=== PATIENT | female | born 1975 | race Caucasian/White ===

== ENCOUNTER → 2018-05-09 | Outpatient (CLI) | payer OTHER ==
[~2018-05-09] MED LIST: DICL25TA PO; HYDR25TA6 PO; IBUP-1223 PO; OXYC-306 PO; PERCOCET PO; POTASSIUM PO
[2018-05-09 12:28] LABS: ANION GAP 6 mmol/L (5-15); CALCIUM 8.8 mg/dL (8.5-10.1); CHLORIDE 103 mmol/L (98-107)
[2018-05-09 12:34] LABS: ALANINE AMINOTRANSFERASE 24 U/L (12-78); ALKALINE PHOSPHATASE 47 U/L (45-117); BILIRUBIN,TOTAL 0.7 mg/dL (0.2-1.0); CREATININE 0.82 mg/dL (0.55-1.02); TOTAL PROTEIN 7.5 g/dL (6.4-8.2)
== END | disposition home or self-care (01) ==
LOC: STAR 10:58
PROVIDERS: ATTEND Otolaryngology
DX: Z01.818 Encounter for other preprocedural examination (principal); H72.91 Unspecified perforation of tympanic membrane, right ear
CPT/HCPCS: 36415; 80053

== ENCOUNTER 2018-05-14 06:06 | Day surgery (SDC) | payer OTHER ==
[~2018-05-14] VITALS: Ht 165.1 cm; Wt 71.5 kg
[2018-05-14] MEDS ORDERED: LACTATED RINGERS 1,000 ML IV SCH (07:02)
[2018-05-14 07:03] VITALS: BP 110/78
[2018-05-14] MEDS ORDERED: OXYC-302 PO (07:03)
[2018-05-14] MEDS ORDERED: FENTANYL PF 250 MCG/5ML ONE (09:58)
[2018-05-14] MEDS ORDERED: MIDAZOLAM 1 MG/ML, 2ML ONE (09:58)
[2018-05-14] MEDS ORDERED: LIDOCAINE 1%-EPI 1:100K, 30ML ONE (10:13)
[2018-05-14] MEDS ORDERED: CIPROFLOXACIN DEXAMETHASONE EAR SUSP 7.5ML ONE (10:13)
[2018-05-14] MEDS ORDERED: EPINEPHRINE TOPICAL SOLN 1 MG/ML, 30ML ONE (10:13)
[2018-05-14] MEDS ORDERED: SUCCINYLCHOLINE 20 MG/ML, 10ML ONE (10:31)
[2018-05-14] MEDS ORDERED: PROPOFOL 10 MG/ML, 20ML ONE (10:31)
[2018-05-14] MEDS ORDERED: PROMETHAZINE 25 MG/ML, 1ML IV PRN (11:30)
[2018-05-14] MEDS ORDERED: LABETALOL 5MG/ML, 20ML IV PRN (11:30)
[2018-05-14] MEDS ORDERED: ACETAMINOPHEN 325 MG TABLET PO PRN (11:30)
[2018-05-14] MEDS ORDERED: OXYcodone 5 MG/5 ML ORAL.SOL UDC PO PRN (11:30)
[2018-05-14] MEDS ORDERED: hydrALAzine 20 MG/ML, 1ML IV PRN (11:30)
[2018-05-14] MEDS ORDERED: FENTANYL PF 100 MCG/2ML IV PRN (11:30)
[2018-05-14] MEDS ORDERED: ALBUTEROL SULFATE 2.5 MG/3 ML NPPB PRN (11:30)
[2018-05-14] MEDS ORDERED: MEPERIDINE/PF 25MG/0.5ML IVPush PRN (11:30)
[2018-05-14] MEDS ORDERED: ACETAMINOPHEN 650 MG/20.3 ML UDC ONE (11:41)
[2018-05-14] MEDS ORDERED: FENTANYL PF 100 MCG/2ML ONE (11:41)
[2018-05-14] MEDS ORDERED: OXYcodone 5 MG/5 ML ORAL.SOL UDC ONE (11:41)
[2018-05-14] MEDS ORDERED: HYDROmorphone 2 MG/ML, 1ML ONE (11:48)
[2018-05-14] MEDS: HYDROmorphone 1 MG/ML, 1ML IV PRN ×2 (11:53→12:00)
[2018-05-14] MEDS ORDERED: DIPHENHYDRAMINE 50 MG/ML, 1ML ONE (12:25)
[2018-05-14] MEDS ORDERED: DIPHENHYDRAMINE 50 MG/ML, 1ML IVPush PRN (12:30)
[2018-05-14] MEDS ORDERED: HYDROcodone/APAP 10/325 MG TABLET PO PRN (13:00)
== END 2018-05-14 16:20 | disposition home or self-care (01) ==
LOC: OUT 06:06 → 3WST 12:59 → OUT 16:20
PROVIDERS: ATTEND Otolaryngology
DX: H72.91 Unspecified perforation of tympanic membrane, right ear (principal); Z91.040 Latex allergy status; Z79.899 Other long term (current) drug therapy; Z98.890 Other specified postprocedural states; Z88.8 Allergy status to other drugs, medicaments and biological substances
CPT/HCPCS: 69631; 81025; 82962; G0378; J0330; J1170; J1200; J2250; J2550; J2704; J3010; J3490; J7120